=== PATIENT | male | born 1940 | race Caucasian/White ===

== ENCOUNTER 2016-05-13 11:16 | Outpatient (CLI) | payer MEDICARE, OTHER | END 2016-05-13 11:17 | disposition home or self-care (01) | LOC: SC 11:16 | PROVIDERS: ATTEND Nurse Practitioner Family | DX: G47.33 Obstructive sleep apnea (adult) (pediatric) (principal) | CPT/HCPCS: 99214; G0463; 99212 ==

== ENCOUNTER 2016-11-12 11:23 | Outpatient (CLI) | payer MEDICARE, OTHER | END 2016-11-12 11:24 | disposition short-term general hospital (02) | LOC: EMS 11:23 | PROVIDERS: ATTEND Surgery | DX: R55 Syncope and collapse (principal) | CPT/HCPCS: A0425; A0427 ==

== ENCOUNTER 2017-09-23 07:33 | Outpatient (CLI) | payer MEDICARE, OTHER ==
[2017-09-23 12:39] LABS: BASOPHILS # (AUTO) 0.1 10^3/uL (0.0-0.1); BASOPHILS % (AUTO) 0.9 %; EOSINOPHILS # (AUTO) 0.5 10^3/uL (0.0-0.7); EOSINOPHILS % (AUTO) 8.3 %; LYMPHOCYTES # (AUTO) 1.8 10^3/uL (1.5-3.5); LYMPHOCYTES % (AUTO) 31.7 %; MEAN CORPUSCULAR HEMOGLOBIN 31.9 pg (27.0-31.0); MEAN CORPUSCULAR HGB CONC 34.3 g/dL (32.0-36.0); MEAN CORPUSCULAR VOLUME 92.9 fL (80.0-94.0); MEAN PLATELET VOLUME 7.3 fL (7.4-11.4); MONOCYTES # (AUTO) 0.4 10^3/uL (0.0-1.0); NEUTROPHILS # (AUTO) 2.8 10^3/uL (1.5-6.6); NEUTROPHILS % (AUTO) 51.1 %; PLT - PLATELET COUNT 238 10^3/uL (130-450); RED BLOOD COUNT 4.38 10^6/uL (4.70-6.10); RED CELL DISTRIBUTION WIDTH 13.5 % (12.0-15.0); WHITE BLOOD COUNT 5.5 x10^3/uL (4.8-10.8)
[2017-09-23 12:49] LABS: ALBUMIN/GLOBULIN RATIO 1.4 (1.0-2.2); ALKALINE PHOSPHATASE 52 IU/L (42-121); ALT ALANINE AMINOTRANSFERASE 29 IU/L (10-60); AST ASPARTATE AMINOTRANSFERASE 38 IU/L (10-42); BILIRUBIN,TOTAL 1.5 mg/dL (0.2-1.0); BUN - BLOOD UREA NITROGEN 23 mg/dL (6-20); CARBON DIOXIDE - CO2 31 mmol/L (21-32); CHLORIDE 103 mmol/L (101-111); CHOL/HDL RATIO 3.6 (<5.0); CHOLESTEROL 153 mg/dL; CREATININE 0.9 mg/dL (0.6-1.2); GFR - MDRD 82 (>89); GLUCOSE 95 mg/dL (70-100); HDL CHOLESTEROL 42 mg/dL; LDL CHOLESTEROL,CALCULATED 94 mg/dL; LDL/HDL RATIO 2.2 (<3.6); SODIUM 138 mmol/L (135-145); TOTAL PROTEIN 6.9 g/dL (6.7-8.2); VLDL CHOLESTEROL 17 mg/dL
== END 2017-09-23 07:34 ==
LOC: LAB.WCP 07:33
PROVIDERS: ATTEND Family Medicine
DX: I25.10 Atherosclerotic heart disease of native coronary artery without angina pectoris (principal); E78.9 Disorder of lipoprotein metabolism, unspecified
CPT/HCPCS: 36415; 80053; 80061; 83721; 84443; 85025

== ENCOUNTER 2018-04-01 08:00 | Outpatient (CLI) | payer MEDICARE, OTHER ==
[2018-04-01 19:28] LABS: ALBUMIN 4.3 g/dL (3.2-5.5); ALBUMIN/GLOBULIN RATIO 1.5 (1.0-2.2); BILIRUBIN,TOTAL 0.8 mg/dL (0.2-1.0); CALCIUM 9.2 mg/dL (8.5-10.3); CREATININE 0.9 mg/dL (0.6-1.2); MAGNESIUM 2.6 mg/dL (1.7-2.8); TOTAL PROTEIN 7.2 g/dL (6.7-8.2)
== END 2018-04-01 23:59 | disposition home or self-care (01) ==
LOC: LAB.WCP 08:00
PROVIDERS: ATTEND Family Medicine
DX: M60.9 Myositis, unspecified (principal); E78.9 Disorder of lipoprotein metabolism, unspecified; I73.00 Raynaud's syndrome without gangrene; I25.10 Atherosclerotic heart disease of native coronary artery without angina pectoris; R42 Dizziness and giddiness; R25.2 Cramp and spasm
CPT/HCPCS: 36415; 80053; 82550; 83735

== ENCOUNTER 2018-05-31 15:08 | Outpatient (CLI) | payer MEDICARE, OTHER ==
[2018-05-31 18:45] LABS: BILIRUBIN,URINE NEGATIVE (NEGATIVE); GLUCOSE, URINE (UA) NEGATIVE (NEGATIVE); KETONES,URINE (UA) NEGATIVE (NEGATIVE); LEUKOCYTE ESTERASE, URINE NEGATIVE (NEGATIVE); NITRITE,URINE NEGATIVE (NEGATIVE); OCCULT BLOOD,URINE NEGATIVE (NEGATIVE); PROTEIN,URINE NEGATIVE (NEGATIVE); UROBILINOGEN,URINE 0.2 (NORMAL) E.U./dL (NORMAL)
[2018-05-31 18:49] LABS: CLARITY,URINE CLEAR (CLEAR)
[2018-05-31 18:50] LABS: BASOPHILS # (AUTO) 0.1 10^3/uL (0.0-0.1); EOSINOPHILS # (AUTO) 0.4 10^3/uL (0.0-0.7); EOSINOPHILS % (AUTO) 5.8 %; LYMPHOCYTES # (AUTO) 1.5 10^3/uL (1.5-3.5); LYMPHOCYTES % (AUTO) 23.7 %; MEAN CORPUSCULAR HEMOGLOBIN 31.3 pg (27.0-31.0); MEAN CORPUSCULAR HGB CONC 33.6 g/dL (32.0-36.0); MEAN CORPUSCULAR VOLUME 93.2 fL (80.0-94.0); MEAN PLATELET VOLUME 7.3 fL (7.4-11.4); MONOCYTES # (AUTO) 0.4 10^3/uL (0.0-1.0); MONOCYTES % (AUTO) 6.1 %; NEUTROPHILS % (AUTO) 63.4 %; PLT - PLATELET COUNT 249 10^3/uL (130-450); RED BLOOD COUNT 4.47 10^6/uL (4.70-6.10); RED CELL DISTRIBUTION WIDTH 13.5 % (12.0-15.0); WHITE BLOOD COUNT 6.3 x10^3/uL (4.8-10.8)
[2018-05-31 19:14] LABS: ALBUMIN 4.2 g/dL (3.2-5.5); ALBUMIN/GLOBULIN RATIO 1.5 (1.0-2.2); BILIRUBIN,TOTAL 1.1 mg/dL (0.2-1.0); CALCIUM 9.4 mg/dL (8.5-10.3); CREATININE 0.8 mg/dL (0.6-1.2)
== END 2018-05-31 23:59 | disposition home or self-care (01) ==
LOC: LAB.N 15:08
PROVIDERS: ATTEND Internal Medicine Gastroenterology
DX: I25.10 Atherosclerotic heart disease of native coronary artery without angina pectoris (principal); N40.1 Benign prostatic hyperplasia with lower urinary tract symptoms; N13.8 Other obstructive and reflux uropathy
CPT/HCPCS: 36415; 80053; 81001; 81003; 85025

== ENCOUNTER 2018-06-06 07:39 | Day surgery (SDC) | payer MEDICARE, OTHER ==
[2018-06-06] MEDS ORDERED: LACTATED RINGERS 1,000 ML IV ONE ×2 (07:48→09:42)
--- NOTE | 2018-06-06 07:52 | ANESTHESIA ---
Pre-Anesthesia VS, & Labs - Diagnosis L inguinal hernia - Procedure Open L inguinal hernia repair Vital Signs: Last Vital Signs Temp 36.0 C L 06/06/18 07:58 Pulse 57 L 06/06/18 07:58 Resp 16 06/06/18 07:58 BP 146/82 H 06/06/18 07:58 Pulse Ox 98 06/06/18 07:58 Height 5 ft 7 in Weight (kg) 63 kg - NPO >8 hours Home Medications and Allergies Home Medications: Ambulatory Orders Aspirin [Aspirin EC] 81 mg PO DAILY 05/31/18 Calcium Carbonate [Tums (Calcium Carbonate 500mg)] 500 mg PO Q4-6H PRN 05/31/18 Clopidogrel Bisulfate [Clopidogrel] 75 mg PO DAILY 05/31/18 Nitroglycerin [Nitrostat] 0.4 mg SL Q5MIN PRN 05/31/18 Pravastatin [Pravachol] 20 mg PO DAILY 05/31/18 RX: Metoprolol Tartrate 12.5 mg PO BID 05/31/18 Ranitidine HCl [Acid [employer] Consultant] 75 mg PO ONCE PRN 05/31/18 Aspirin [Aspirin EC] 81 mg PO DAILY 05/31/18 Calcium Carbonate [Tums (Calcium Carbonate 500mg)] 500 mg PO Q4-6H PRN 05/31/18 Clopidogrel Bisulfate [Clopidogrel] 75 mg PO DAILY 05/31/18 Metoprolol Tartrate 12.5 mg PO BID 05/31/18 Nitroglycerin [Nitrostat] 0.4 mg SL Q5MIN PRN 05/31/18 Pravastatin [Pravachol] 20 mg PO DAILY 05/31/18 Ranitidine HCl [Acid [employer] Business Consultant] 75 mg PO ONCE PRN 05/31/18 Allergies/Adverse Reactions: Allergies Allergy/AdvReac Type Severity Reaction Status Date / Time apple Allergy Rash Verified 05/31/18 09:27 zapien Allergy Rash Verified 05/31/18 09:27 Penicillins Allergy Rash Verified 05/31/18 09:27 fexofenadine [From Juliann] AdvReac erratic Verified 05/31/18 09:27 heartbeat Anes History & Medical History - Anesthetic History Anesthesia Complications: reports: No previous complications Family history of Anesthesia Complications: Denies Family history of Malignant Hyperthermia: Denies - Medical History Cardiovascular: reports: High cholesterol, Coronary artery disease, Arrhythmia Pulmonary: reports: Sleep apnea Gastrointestinal: reports: GERD, Hiatal hernia Urinary: reports: None Musculoskeletal: reports: None Endocrine/Autoimmune: reports: None Skin: reports: Psoriasis - Surgical History General: Colonoscopy, EGD Cardiothoracic: Angioplasty Exam General: Alert, Oriented x3, Cooperative Dental: WNL Mouth Openin Fingerbreadth Neck Mobility: Normal Mallampati classification: II Thyromental Distance: 4-6 cm Respiratory: Lungs clear, Normal breath sounds, No respiratory distress Cardiovascular: Regular rate (sejal) Neurological: Normal gait Mental/Cognitive Status: Alert/Oriented X3, Normal for patient Cognitive Status: Within normal limits Plan Anesthesia Type: General (backup), MAC Regional Block: Per Surgeon's request for Post Op pain control Consent for Procedure(s) Verified and Reviewed: Yes Code Status: Attempt Resuscitation ASA classification: 3-Severe systemic disease Is this case an emergency?: No
[2018-06-06] MEDS ORDERED: ceFAZolin 2 GM/50 ML 2 GM/50 ML BAG IV ONE (08:21)
[2018-06-06] MEDS ORDERED: ceFAZolin 1 GM VIAL ONE (08:48)
[2018-06-06] MEDS ORDERED: LIDOCAINE 1% 50 ML MDV ONE (08:48)
[2018-06-06] MEDS ORDERED: BUPIVACAINE 0.5%-EPI 1:200000 PF 30 ML VIAL ONE (08:49)
[2018-06-06] MEDS ORDERED: BUPIVACAINE 0.5%-EPI 1:200000 PF 30 ML VIAL SUBQ ONE ×2 (09:24)
[2018-06-06] MEDS ORDERED: LIDOCAINE 1% 50 ML MDV SUBQ ONE ×2 (09:24)
[2018-06-06] MEDS ORDERED: ONDANSETRON 4 MG/2 ML VIAL IVP ONE (09:25)
[2018-06-06] MEDS ORDERED: DEXAMETHASONE 4 MG/ML VIAL IVP ONE (09:25)
[2018-06-06] MEDS ORDERED: KETOROLAC 30 MG/ML VIAL IVP ONE (09:25)
[2018-06-06] MEDS ORDERED: PROPOFOL 200 MG/20 ML VIAL IVP ONE (09:25)
[2018-06-06] MEDS ORDERED: MIDAZOLAM 2 MG/2 ML VIAL IVP ONE (09:25)
[2018-06-06] MEDS ORDERED: LIDOCAINE-MPF 2% 5 ML VIAL IM ONE (09:25)
[2018-06-06] MEDS ORDERED: oxyCODONE 5 MG TABLET PO PRN (10:36)
[2018-06-06] MEDS ORDERED: ONDANSETRON 4 MG/2 ML VIAL IVP PRN (10:36)
[2018-06-06] MEDS ORDERED: ACETAMINOPHEN 325 MG TABLET PO PRN (10:36)
[2018-06-06] MEDS ORDERED: IBUPROFEN 600 MG TABLET PO PRN (10:36)
[2018-06-06 11:55] VITALS: BP 131/73
--- NOTE | 2018-06-06 12:01 | OPERATIVE REPORT ---
DATE OF SERVICE: 06/06/2018 Physician: Kem Wheat MD PREOPERATIVE DIAGNOSIS: Symptomatic left inguinal hernia. POSTOPERATIVE DIAGNOSIS: Symptomatic left inguinal hernia. PROCEDURE PERFORMED: Open repair of left inguinal hernia with polypropylene mesh. ANESTHESIA: Local plus monitored anesthesia care by Rolan De La O CRNA. SURGEON: Kem Wheat MD. ESTIMATED BLOOD LOSS: 10 mL. COMPLICATIONS: None. FINDINGS: A moderate-sized direct left inguinal hernia was present. There was no evidence of indire ct or femoral hernia. A small cord lipoma was noted. INDICATIONS: Patient is a 77-year-old gentleman with a 4-month history of a painful left groin bulge . Examination revealed a reducible left inguinal hernia. He was advised to undergo repair under loc al anesthesia with monitored anesthesia care. TECHNIQUE: After informed consent, patient was taken to the operating room where he was sedated and monitored. Preoperative preparation included application of sequential calf compression boots and ad ministration of 2 grams of Zosyn intravenously within an hour of the incision. His left groin had be en clipped in the ASU and was prepared with iodoform solution, following which a left groin block was instilled using a 50:50 combination of 1% lidocaine plain and 0.5% Marcaine with epinephrine. A tot al of 35 mL of the mixture was used. The left groin was re-prepared with ChloraPrep solution and sneha ped in the usual sterile fashion. Transverse incision was made in the skin lines in the left groin beginning above the pubic tubercle, extending laterally for a distance of approximately 5 cm. Hemostasis achieved with electrocautery an d 2-0 Vicryl ties. Incision was carried down through subcutaneous tissues until the external oblique aponeurosis was identified. It was incised along the lines of its fibers in such a manner as to ope n the external ring and expose the internal ring. The spermatic cord was mobilized and encircled wit h a Dunnigan drain. The ilioinguinal nerve was small and was divided to avoid entrapment and postoper ative neuralgia. The spermatic cord was dissected, isolating a small cord lipoma, which was dissecte d free of the surrounding cord structure at the level of internal ring. It was ligated with 2-0 Vicr yl, amputated, and discarded. The direct defect was readily identified, comprising the majority of t he inguinal floor. It was reduced and the inguinal floor was imbricated using a continuous 2-0 Ethib ond suture. After hemostasis was assured, the wound was irrigated with antibiotic solution containing 1 gram of A ncef per liter, following which a Covidien precut slotted expanded polypropylene mesh designed for in guinal hernia repairs was soaked in the antibiotic solution containing 1 gram of cefazolin per liter, then placed over the inguinal floor and secured circumferentially with continuous 3-0 Prolene suture s, securing the mesh to the inferior edge of Poupart's ligament inferiorly, to the internal oblique a poneurosis laterally and superiorly, and to the lateral border of the rectus sheath medially. Care w as taken to avoid excessive tightening of the patch around the cord at the level of the internal ring . After hemostasis assured, the wound was again irrigated with antibiotic solution, following which wou nd closure was accomplished in layers using continuous 2-0 Vicryl to reapproximate the external obliq ue aponeurosis overlying the cord, followed by 3-0 Vicryl for Harshil's fascia and 4-0 Monocryl subcut icular skin closure, followed by Dermabond. The procedure was terminated and patient transferred to the operating room in satisfactory condition. All counts were correct x2. No drains were used. cc: Javier Montenegro MD TD: 06/06/2018 10:53
== END 2018-06-06 07:40 | disposition home or self-care (01) ==
LOC: SDS 07:39
PROVIDERS: ATTEND Internal Medicine Gastroenterology
PROC: 0VBG0ZZ Excision of Left Spermatic Cord, Open Approach (ICD-10-PCS; 2018-06-06)
PROC: 0YU60JZ Supplement Left Inguinal Region with Synthetic Substitute, Open Approach (ICD-10-PCS; principal; 2018-06-06 08:45)
DX: K40.90 Unilateral inguinal hernia, without obstruction or gangrene, not specified as recurrent (principal); D17.6 Benign lipomatous neoplasm of spermatic cord; I25.10 Atherosclerotic heart disease of native coronary artery without angina pectoris; Z95.5 Presence of coronary angioplasty implant and graft; G47.9 Sleep disorder, unspecified; K21.9 Gastro-esophageal reflux disease without esophagitis
CPT/HCPCS: 49505; 55520; J0690; J7120

== ENCOUNTER 2020-10-18 08:00 | Outpatient (CLI) | payer MEDICARE, OTHER | END 2020-10-18 23:59 | disposition home or self-care (01) | LOC: LAB.N 08:00 | PROVIDERS: ATTEND Nurse Practitioner | DX: R39.9 Unspecified symptoms and signs involving the genitourinary system (principal) | CPT/HCPCS: 87086 ==

== ENCOUNTER 2020-10-19 09:15 | Outpatient (CLI) | payer MEDICARE, OTHER ==
[2020-10-19 14:01] LABS: BASOPHILS % (AUTO) 0.6 %; EOSINOPHILS # (AUTO) 0.4 10^3/uL (0.0-0.7); EOSINOPHILS % (AUTO) 5.5 %; HCT - HEMATOCRIT 43.4 % (42.0-52.0); HGB - HEMOGLOBIN 14.3 g/dL (14.0-18.0); LYMPHOCYTES # (AUTO) 1.5 10^3/uL (1.5-3.5); LYMPHOCYTES % (AUTO) 22.8 %; MEAN CORPUSCULAR HEMOGLOBIN 31.6 pg (27.0-31.0); MEAN CORPUSCULAR HGB CONC 32.9 g/dL (32.0-36.0); MEAN CORPUSCULAR VOLUME 95.8 fL (80.0-94.0); MEAN PLATELET VOLUME 9.4 fL (7.4-11.4); MONOCYTES # (AUTO) 0.5 10^3/uL (0.0-1.0); MONOCYTES % (AUTO) 8.1 %; NEUTROPHILS # (AUTO) 4.1 10^3/uL (1.5-6.6); NEUTROPHILS % (AUTO) 62.7 %; PLT - PLATELET COUNT 238 10^3/uL (130-450); RED BLOOD COUNT 4.53 10^6/uL (4.70-6.10); RED CELL DISTRIBUTION WIDTH 12.9 % (12.0-15.0); WHITE BLOOD COUNT 6.5 x10^3/uL (4.8-10.8)
[2020-10-19 14:12] LABS: ALBUMIN 4.5 g/dL (3.2-5.5); ALBUMIN/GLOBULIN RATIO 1.6 (1.0-2.2); BILIRUBIN,TOTAL 1.5 mg/dL (0.2-1.0); CALCIUM 9.4 mg/dL (8.5-10.3); CREATININE 0.9 mg/dL (0.6-1.2); POTASSIUM 4.3 mmol/L (3.5-5.0); TOTAL PROTEIN 7.3 g/dL (6.7-8.2)
== END 2020-10-19 09:16 | disposition home or self-care (01) ==
LOC: LAB.N 09:15
PROVIDERS: ATTEND Nurse Practitioner
DX: R30.0 Dysuria (principal); R39.9 Unspecified symptoms and signs involving the genitourinary system
CPT/HCPCS: 36415; 80053; 84153; 85025; 87086

== ENCOUNTER 2020-11-14 08:00 | Outpatient (CLI) | payer MEDICARE, OTHER | END 2020-11-14 23:59 | disposition home or self-care (01) | LOC: LAB.N 08:00 | PROVIDERS: ATTEND Family Medicine | DX: R30.0 Dysuria (principal); R39.15 Urgency of urination | CPT/HCPCS: 36415; 84153; 87086 ==

== ENCOUNTER 2021-04-18 09:17 | Outpatient (CLI) | payer MEDICARE, OTHER ==
--- NOTE | 2021-04-18 12:10 | Ultrasound Report ---
PROCEDURE: Head or Neck Soft Tissue INDICATIONS: THYROID NODULE TECHNIQUE: Real-time scanning was performed of the thyroid gland, with image documentation. COMPARISON: None FINDINGS: Right: Thyroid lobe measures 5.2 x 2.3 x 1.6 cm, and is homogeneous in echotexture. Left: Thyroid lobe measures 4.6 x 1.8 x 1.6 cm, and is homogenous in echotexture. Isthmus: 2 mm thick. Nodule number: One Location: Right mid Size: 1.8 x 1.4 x 1.3 cm. Composition: Prominently solid Echogenicity: Isoechoic Shape: wider than tall. Margins: Smooth Echogenic foci: None. Total points: 3 ACR TI-RADS category: TR 3. Mildly suspicious. Nodule number: Two Location: Left inferior Size: 0.6 x 0.6 x 0.6 cm. Composition: Solid Echogenicity: Hypoechoic Shape: wider than tall. Margins: Ill-defined Echogenic foci: Peripheral calcification Total points: 6 ACR TI-RADS category: TR 4, moderately suspicious Nodule number: Three Location: Left inferior Size: 1 x 0.7 x 0.6 cm. Composition: Cystic Echogenicity: Anechoic Shape: wider than tall. Margins: Smooth Echogenic foci: Comet tail artifact Total points: 2 ACR TI-RADS category: TR 2, not suspicious IMPRESSION: Right mid thyroid nodule measuring 1.8 cm. TR 3, mildly suspicious. Recommend follow-up ultrasound in one year. ACR TI-RADS definitions and recommendations: TI-RADS 1 (benign): 0 points. FNA not needed. TI-RADS 2 (not suspicious): 2 points. FNA not needed. TI-RADS 3 (mildly suspicious): 3 points. "FNA if 2.5 cm or larger, follow up if 1.5 cm or larger (at 1, 3, and 5 years). TI-RADS 4 (moderately suspicious): 4-6 points. "FNA if 1.5 cm or larger, follow up if 1 cm or larger (at 1, 2, 3, and 5 years). TI-RADS 5 (highly suspicious): 7 points or more. "FNA if 1 cm or larger, follow up if 0.5 cm or larger (every year for 5 years). Reviewed by: Maynor Rios MD on 04/18/2021 12:09 PM PST Approved by: Maynor Rios MD on 04/18/2021 12:09 PM PST Station ID: [id number]
== END 2021-04-18 09:18 | disposition home or self-care (01) ==
LOC: DI 09:17
PROVIDERS: ATTEND Internal Medicine
DX: E04.2 Nontoxic multinodular goiter (principal)

== ENCOUNTER 2021-04-30 11:40 | Outpatient (CLI) | payer MEDICARE, OTHER ==
[2021-04-30 18:34] LABS: THYROID STIMULATING HORMONE 0.78 uIU/mL (0.34-5.60)
[2021-04-30 18:36] LABS: FREE T4 (FREE THYROXINE) 0.85 ng/dL (0.58-1.64)
== END 2021-04-30 11:41 | disposition home or self-care (01) ==
LOC: LAB.N 11:40
PROVIDERS: ATTEND Nurse Practitioner
DX: E04.1 Nontoxic single thyroid nodule (principal)
CPT/HCPCS: 36415; 84439; 84443

== ENCOUNTER 2021-09-29 08:00 | Outpatient (CLI) | payer MEDICARE, OTHER ==
[2021-09-29 18:02] LABS: PSA FREE 0.742 ng/mL (0.16-2.81)
[2021-09-29 18:03] LABS: PSA TOTAL 2.247 ng/mL (0.000-2.000)
== END 2021-09-29 23:59 | disposition home or self-care (01) ==
LOC: LAB.N 08:00
PROVIDERS: ATTEND Registered Nurse
DX: N41.9 Inflammatory disease of prostate, unspecified (principal)
CPT/HCPCS: 36415; 84153; 84154; 87086

== ENCOUNTER 2022-08-12 06:15 | Outpatient (CLI) | payer MEDICARE, OTHER | END 2022-08-12 23:59 | disposition critical access hospital (66) | LOC: EMS 06:15 | DX: R42 Dizziness and giddiness (principal); R11.0 Nausea; R19.7 Diarrhea, unspecified | CPT/HCPCS: A0425; A0427 ==

== ENCOUNTER 2022-08-12 06:39 | Emergency (ER) | payer MEDICARE, OTHER ==
[2022-08-12 07:36] LABS: ALBUMIN 4.1 g/dL (3.2-5.5); ALBUMIN/GLOBULIN RATIO 1.7 (1.0-2.2); BILIRUBIN,TOTAL 1.4 mg/dL (0.2-1.0); CALCIUM 8.3 mg/dL (8.5-10.3); CREATININE 0.9 mg/dL (0.6-1.2); POTASSIUM 4.4 mmol/L (3.5-5.0); TOTAL PROTEIN 6.5 g/dL (6.7-8.2)
[2022-08-12 07:57] LABS: BASOPHILS # (AUTO) 0.1 10^3/uL (0.0-0.1); BASOPHILS % (AUTO) 0.7 %; EOSINOPHILS # (AUTO) 0.4 10^3/uL (0.0-0.7); HCT - HEMATOCRIT 38.8 % (42.0-52.0); HGB - HEMOGLOBIN 13.1 g/dL (14.0-18.0); LYMPHOCYTES # (AUTO) 1.7 10^3/uL (1.5-3.5); LYMPHOCYTES % (AUTO) 24.9 %; MEAN CORPUSCULAR HEMOGLOBIN 31.2 pg (27.0-31.0); MEAN CORPUSCULAR HGB CONC 33.8 g/dL (32.0-36.0); MEAN CORPUSCULAR VOLUME 92.4 fL (80.0-94.0); MEAN PLATELET VOLUME 10.1 fL (7.4-11.4); MONOCYTES # (AUTO) 0.5 10^3/uL (0.0-1.0); MONOCYTES % (AUTO) 7.2 %; NEUTROPHILS # (AUTO) 4.1 10^3/uL (1.5-6.6); NEUTROPHILS % (AUTO) 60.9 %; PLT - PLATELET COUNT 172 10^3/uL (130-450); RED CELL DISTRIBUTION WIDTH 12.9 % (12.0-15.0); WHITE BLOOD COUNT 6.8 x10^3/uL (4.8-10.8)
--- NOTE | 2022-08-12 10:38 | ED Physician Documentation ---
PD HPI NVD - Stated complaint Stated Complaint: DIZZY/V/D - Chief complaint Chief Complaint: Abd Pain - History obtained from History obtained from: Patient, Family - History of Present Illness Timing - onset: Today Timing - duration: Hours Timing - details: Abrupt onset, Still present Associated symptoms: Abdominal pain Contributing factors: Sick contact ( ill with similar has recovered) Improved by: Vomiting, BM Similar symptoms before: Has not had sx before Recently seen: Not recently seen - Additonal information Additional information: 81-year-old Buddy Padron has recently been on a 30-day cruise and he and his returned to [place] 3 days ago.The patient indicates that he was feeling well yesterday and this morning at 3 AM he had a loose bowel movement followed by a diarrheal movement and vomiting that left him on the floor unable to get up. He called the ambulance and was transported to the hospital. His has been ill with a similar illness and she has recovered. She was ill for about 1 day. Review of Systems Constitutional: reports: Chills. denies: Fever Eyes: denies: Decreased vision Ears: denies: Ear pain Nose: denies: Rhinorrhea / runny nose, Congestion Throat: denies: Sore throat Cardiac: denies: Chest pain / pressure, Palpitations Respiratory: denies: Dyspnea, Cough GI: reports: Abdominal Pain (cramping resovled), Nausea, Vomiting, Diarrhea : denies: Dysuria, Frequency Skin: denies: Rash Musculoskeletal: denies: Neck pain, Back pain, Extremity pain PD PAST MEDICAL HISTORY - Past Medical History Cardiovascular: High cholesterol, Coronary artery disease, Arrhythmia, Valve di sorder Respiratory: Sleep apnea Endocrine/Autoimmune: None GI: GERD : Benign prostate hypertrophy HEENT: Chronic vision loss, Chronic sinusitis Psych: Depression Musculoskeletal: None Derm: Psoriasis, Other - Past Surgical History Past Surgical History: Yes General: Colonoscopy, EGD Cardiovascular: Valve replacement, Angioplasty, Other - Present Medications Home Medications: Ambulatory Orders Medication Instructions Recorded Confirmed Aspirin [Aspirin EC] 81 mg PO DAILY 05/31/18 08/12/22 Clopidogrel Bisulfate [Clopidogrel] 75 mg PO DAILY 05/31/18 08/12/22 Metoprolol Tartrate 12.5 mg PO BID 05/31/18 08/12/22 Nitroglycerin [Nitrostat] 0.4 mg SL Q5MIN PRN 05/31/18 08/12/22 Atorvastatin Calcium 40 mg PO DAILY 03/05/22 08/12/22 Tamsulosin [Flomax] 0.4 mg PO DAILY 03/05/22 08/12/22 Ondansetron Odt [Zofran] 4 mg TL Q6H PRN #10 tablet 08/12/22 - Allergies Allergies/Adverse Reactions: Allergies Allergy/AdvReac Type Severity Reaction Status Date / Time apple Allergy Rash Verified 08/12/22 07:14 zapien Allergy Rash Verified 08/12/22 07:14 Penicillins Allergy Rash Verified 08/12/22 07:14 fexofenadine [From Juliann] AdvReac erratic Verified 08/12/22 07:14 heartbeat - Social History Does the pt smoke?: No Smoking Status: Never smoker Does the pt drink ETOH?: Yes Does the pt have substance abuse?: No - Immunizations Immunizations are current?: No PD ED PE NORMAL - Vitals Vital signs reviewed: Yes (Bradycardic and hypertensive) - General General: Alert and oriented X 3, No acute distress, Well developed/nourished - HEENT HEENT: Atraumatic, PERRL, EOMI - Neck Neck: Supple, no meningeal sign, No bony TTP - Cardiac Cardiac: RRR, No murmur - Respiratory Respiratory: No respiratory distress, Clear bilaterally - Abdomen Abdomen: Normal bowel sounds, Soft, Non tender, Non distended, No organomegaly - Back Back: No CVA TTP, No spinal TTP - Derm Derm: Normal color, Warm and dry, No rash - Extremities Extremities: No deformity, No edema - Neuro Neuro: Alert and oriented X 3, 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, No motor deficit, No sensory deficit, Normal speech Eye Opening: Spontaneous Motor: Obeys Commands Verbal: Oriented GCS Score: 15 - Psych Psych: Normal mood, Normal affect Results - Vitals Vitals: Vital Signs - 24 hr 08/12/22 08/12/22 07:08 09:08 Temperature 36.4 C L Heart Rate 54 L 43 L Respiratory 11 L 11 L Rate Blood Pressure 137/97 H 146/74 H O2 Saturation 98 97 Oxygen O2 Source Room air - Labs Labs: Laboratory Tests 08/12/22 08/12/22 06:47 06:47 WBC 6.8 RBC 4.20 L Hgb 13.1 L Hct 38.8 L MCV 92.4 MCH 31.2 H MCHC 33.8 RDW 12.9 Plt Count 172 MPV 10.1 Neut # (Auto) 4.1 Lymph # (Auto) 1.7 Kent # (Auto) 0.5 Eos # (Auto) 0.4 Baso # (Auto) 0.1 Absolute Nucleated RBC 0.00 Nucleated RBC % 0.0 Sodium 136 Potassium 4.4 Chloride 106 Carbon Dioxide 27 Anion Gap 3.0 L BUN 20 Creatinine 0.9 Estimated GFR (MDRD) 81 L Glucose 142 H Calcium 8.3 L Total Bilirubin 1.4 H AST 25 ALT 29 Alkaline Phosphatase 58 Total Protein 6.5 L Albumin 4.1 Globulin 2.4 Albumin/Globulin Ratio 1.7 Lipase 27 PD Medical Decision Making - ED course Reviewed Lab Results: We reviewed a complete blood count showing a normal white blood cell count normal hemoglobin hematocrit and platelets normal electrolytes normal kidney and liver function mildly elevated glucose.My interpretation of these laboratory results are a relatively benign process at hand. ED course: 81-year-old Buddy Crooks developed acute vomiting and diarrhea this morning and was unable to get up off of his floor. At the time I arrived in his room he has been administered a liter of saline and he feels improved. On examination I am finding nothing specific. I did evaluate the patient's IVC with POCUS and found him to be euvolemic. He had received Zofran and had no further nausea. The patient's recovered rapidly from her illness and I would expect this patient to recover as well. Nonetheless we are prescribing some Zofran as needed. Departure - Departure Disposition: 01 Home, Self Care Clinical Impression: Gastroenteritis Condition: Stable Instructions: ED Gastroenteritis Viral Follow-Up: [facility] [place] [Provider Group] Prescriptions: Ondansetron Odt [Zofran] 4 mg TL Q6H PRN #10 tablet PRN Reason: Nausea / Vomiting Comments: Buddy, it looks like you have a gastroenteritis that is likely a viral infection. The usual course of this is a self resolving process and dehydration is at the part of this will get you into trouble. My recommendation is to use the Zofran as needed and continue to hydrate and expect resolution of your symptoms in the next 1 to 3 days. If you are worsening or develop profound symptoms of dehydration come back and see us. I have E scribed your medicine to the [facility] in [place].
[2022-08-12 11:23] VITALS: BP 137/86
== END 2022-08-12 11:21 | disposition home or self-care (01) ==
LOC: EDUNIT# → ED 06:39
DX: K52.9 Noninfective gastroenteritis and colitis, unspecified (principal)
CPT/HCPCS: 36415; 80053; 83690; 85025; 93005; 99284

== ENCOUNTER 2022-11-07 08:00 | Outpatient (CLI) | payer MEDICARE, OTHER | END 2022-11-07 23:59 | disposition home or self-care (01) | LOC: LAB 08:00 | PROVIDERS: ATTEND Physician Assistant Medical | DX: N40.0 Benign prostatic hyperplasia without lower urinary tract symptoms (principal) | CPT/HCPCS: 87086 ==

== ENCOUNTER 2023-01-04 08:39 | Outpatient (CLI) | payer MEDICARE, OTHER ==
[2023-01-04 12:51] LABS: THYROID STIMULATING HORMONE 1.04 uIU/mL (0.34-5.60)
== END 2023-01-04 08:40 | disposition home or self-care (01) ==
LOC: LAB.N 08:39
PROVIDERS: ATTEND Nurse Practitioner
DX: R53.83 Other fatigue (principal)
CPT/HCPCS: 36415; 82607; 84443

== ENCOUNTER 2023-04-26 16:41 | Outpatient (CLI) | payer MEDICARE, OTHER ==
--- NOTE | 2023-04-27 14:11 | XRAY Report ---
PROCEDURE: Mandible 4+V BL INDICATIONS: JAW PAIN TECHNIQUE: 10 views of the mandible were acquired. COMPARISON: None FINDINGS: Bones: No fractures or dislocations. No suspicious bony lesions. Soft tissues: Visualized sinuses appear clear. No suspicious soft tissue densities. IMPRESSION: Negative mandibular radiographic series. There is persistent clinical concern for pathology, consider further evaluation with CT or MRI. Reviewed by: Jovany Florentino MD on 04/27/2023 2:10 PM PST Approved by: Jovany Florentino MD on 04/27/2023 2:10 PM PST Station ID: [id number]
== END 2023-04-26 16:42 | disposition home or self-care (01) ==
LOC: DI 16:41
PROVIDERS: ATTEND Physician Assistant Medical
DX: R68.84 Jaw pain (principal)

== ENCOUNTER 2023-05-10 22:14 | Emergency (ER) | payer MEDICARE, OTHER ==
--- NOTE | 2023-05-10 23:27 | ED Physician Documentation ---
PD HPI UPPER EXT INJURY - Stated complaint Stated Complaint: L FINGER LACS - Chief complaint Chief Complaint: Laceration - History obtained from History obtained from: Patient - History of Present Illness Location: Left, Finger (little and ring fingers palmar middle phalanges. Able to flex and extend but hurts. States less sensation in finger tips, but had tight bandage on enroute here.) Type of injury: Laceration (from broken glass.) Where injury occurred: Home Timing - onset: Today Timing - details: Abrupt onset, Still present (mild dripping of blood without direct pressure.) Worsened by: Moving, Palpating Associated symptoms: Numbness. No: Weakness, Swelling, Discolored Similar symptoms before: Has not had sx before PD PAST MEDICAL HISTORY - Past Medical History Past Medical History: Yes Cardiovascular: High cholesterol, Coronary artery disease, Arrhythmia, Valve disorder Respiratory: Sleep apnea Endocrine/Autoimmune: None GI: GERD : Benign prostate hypertrophy HEENT: Chronic vision loss, Chronic sinusitis Psych: Depression Musculoskeletal: None Derm: Psoriasis, Other - Past Surgical History Past Surgical History: Yes General: Colonoscopy, EGD Cardiovascular: Valve replacement, Angioplasty, Other HEENT: Tonsil/Adenoidectomy Derm: Skin cancer surgery - Present Medications Home Medications: Ambulatory Orders Medication Instructions Recorded Confirmed Aspirin [Aspirin EC] 81 mg PO DAILY 05/31/18 05/11/23 Metoprolol Tartrate 12.5 mg PO BID 05/31/18 05/11/23 Tamsulosin [Flomax] 0.4 mg PO DAILY 03/05/22 05/11/23 Terbinafine [LamISIL] 250 mg PO DAILY 05/10/23 05/11/23 - Allergies Allergies/Adverse Reactions: Allergies Allergy/AdvReac Type Severity Reaction Status Date / Time apple Allergy Rash Verified 05/10/23 22:37 zapien Allergy Rash Verified 05/10/23 22:37 Penicillins Allergy Rash Verified 05/10/23 22:37 fexofenadine [From Juliann] AdvReac erratic Verified 05/10/23 22:37 heartbeat - Social History Does the pt smoke?: No Smoking Status: Never smoker Does the pt drink ETOH?: Yes Does the pt have substance abuse?: No - Immunizations Immunizations are current?: No PD ED PE NORMAL - Vitals Vital signs reviewed: Yes - General General: Alert and oriented X 3, No acute distress, Well developed/nourished - Derm Derm: Normal color, Warm and dry - Extremities Extremities: Other (ring and little fingers with [place] l[place] horizontal at distal aspect of middle phalanges. To fatty tissue. Does not seem deeper, but mild ongoing bleeding. No FB seen. ) - Neuro Neuro: Alert and oriented X 3, No motor deficit, Normal speech, Other (sensation present in finger tips but he states feels dulled. Able to flex and extend but hurts at wounds so not strong. ) Results - Vitals Vitals: Vital Signs - 24 hr 05/10/23 05/11/23 22:25 00:54 Temperature 37 C Heart Rate 56 L 60 Respiratory 16 18 Rate Blood Pressure 145/67 H 140/68 H O2 Saturation 100 99 Oxygen O2 Source Room air Procedures - Laceration (location) left fingers Length in cm: 2.4 Wound type: Curved, Into subcut fat, Clean Neurovascular status: Motor intact, Vascular intact Tendon involvement: Tendon intact Anesthesia: Lidocaine 1% Wound preparation: Wound explored, To the base, Other (cleansed with lots of tap water.) Skin layer closure: Nylon, Interrupted, Size #-0 - enter number (4), Sutures - enter # (8) Other: Patient tolerated well, No complications, Dressing applied, Tetanus UTD Departure - Departure Disposition: 01 Home, Self Care Clinical Impression: Laceration of finger Qualifiers: Encounter type: initial encounter Finger: unspecified finger Damage to nail status: without damage Foreign body presence: without foreign body Laterality: left Qualified Code(s): S61.219A - Laceration without foreign body of unspecified finger without damage to nail, initial encounter Condition: Stable Record reviewed to determine appropriate education?: Yes Instructions: ED Laceration Hand Follow-Up: Ewelina Aponte ARNP [Primary Care Provider] - Comments: It is okay to wash and shower. Clean off the wound twice a day with soap and water, or peroxide and water. Apply some antibiotic ointment to it to keep it moist. Also to watch for signs of infection such as purulence, redness or increasing pain. Return to your primary care or the ER at the specified time for suture removal. Tylenol or ibuprofen as needed for pains. Suture removal 7 to 10 days. Forms: PCP List Discharge Date/Time: 05/11/23 00:56
[2023-05-11] MEDS: LIDOCAINE 1% 2 ML VIAL SUBQ STA (00:03)
[2023-05-11 00:59] VITALS: BP 140/68; O2SAT 99
== END 2023-05-11 00:56 | disposition home or self-care (01) ==
LOC: ED 22:14
DX: S61.217A Laceration without foreign body of left little finger without damage to nail, initial encounter (principal); S61.215A Laceration without foreign body of left ring finger without damage to nail, initial encounter; W25.XXXA Contact with sharp glass, initial encounter
CPT/HCPCS: 12001; 99282